=== PATIENT | female | born 2000 | race Caucasian/White ===

== ENCOUNTER 2018-12-26 12:01 | Observation (INO) ==
[2018-12-26 12:04] VITALS: BMI 32.1
[2018-12-26] MEDS ORDERED: NS 500 ML IV 500 ML IV ONE (12:24)
[2018-12-26] MEDS ORDERED: ZOFRAN INJ 4 MG VIAL IVP ONE (12:24)
[2018-12-26] MEDS ORDERED: NS 1000 ML 1,000 ML ONE (12:33)
[2018-12-26] MEDS ORDERED: ZOFRAN INJ 4 MG VIAL ONE (12:33)
[2018-12-26 12:43] LABS: BASOPHILS % (AUTO) 0.5 % (0.2-1.0); EOSINOPHILS # (AUTO) 0.1 x10^3/uL (0.0-0.2); EOSINOPHILS % (AUTO) 0.6 % (0.9-2.9); HEMATOCRIT 38.1 % (36.0-47.0); HEMOGLOBIN 13.4 g/dL (12.0-16.0); LYMPHOCYTES # (AUTO) 2.6 X10^3/uL (1.3-2.9); MEAN CORPUSCULAR HEMOGLOBIN 32.5 pg (27.0-34.0); MEAN CORPUSCULAR HGB CONC 35.1 g/dL (33.0-35.0); MEAN CORPUSCULAR VOLUME 92.7 fL (80.0-100.0); MEAN PLATELET VOLUME 7.1 fL (7.4-11.0); MONOCYTES # (AUTO) 0.6 x10^3/uL (0.3-0.8); MONOCYTES % (AUTO) 6.5 % (0.0-13.0); NEUTROPHILS # (AUTO) 6.2 x10^3/uL (2.2-4.8); NEUTROPHILS % (AUTO) 65.4 % (42.0-75.0); PLATELET COUNT 325 X10^3/uL (150.0-450.0); RED BLOOD COUNT 4.11 X10^6/uL (3.5-5.4); RED CELL DISTRIBUTION WIDTH 12.7 % (11.6-16.5); WHITE BLOOD COUNT 9.5 X10^3/uL (3.6-10.0)
[2018-12-26 12:54] LABS: ALANINE AMINOTRANSFERASE 15 Units/L (12-78); ALBUMIN 4.2 g/dL (3.4-5.0); ALKALINE PHOSPHATASE 80 Units/L (46-116); ASPARTATE AMINO TRANSFERASE 11 Units/L (15-37); BLOOD UREA NITROGEN 8 mg/dL (7-18); CALCIUM 8.7 mg/dL (8.5-10.1); CARBON DIOXIDE 24.1 mmol/L (21-32); CHLORIDE 107 mmol/L (98-107); CREATININE 0.61 mg/dL (0.55-1.02); SODIUM 140 mmol/L (136-145); TOTAL PROTEIN 7.1 g/dL (6.4-8.2); eGFR NON BLACK RACES > 60 (>60)
--- NOTE | 2018-12-26 12:59 | DR.NAUSEAF ---
HPI Time Seen Time Seen by Provider: 12/26/18 12:24 Primary Care Physician Primary Care Physician: Иван WHITLOCK, OSWALD Complaints Chief Complaint Doctors Comments: A 18 y/o female presenting with c/o nausea, vomiting and diarrhea for the preceding 3 days. There is some mild upper abdominal soreness. She states that she was feverish on 1st day of symptoms but not since then. She denies experiencing chills. Chief Complaint:: PT. C/O BODY ACHES, N/V/D X 3 DAYS WELL FEVER AND CHILLS. Reviewed Nurses Notes Reviewed: Yes Source History Provided: Patient Mode of Arrival Mode of Arrival: Ambulatory Timing Onset of Chief Complaint: 12/23/18 Context Onset: Spontaneous Recent: None : No Quality Quality: denies Bilious, Bloody, Coffee Grounds and Food Particles Associated Signs and Symptoms Abdominal Pain Quality: denies Aching, Burning, Cramping, Sharp, Stabbing and Other PMH PMH Past Medical History: No Past Medical History: Depression Past Surgical History: Yes Surgical History: Tonsillectomy Past Surgical History Comment: TUBES IN EARS Family History History of Family Medical Conditions: Yes Family Medical History: Hypertension Social History Does patient currently use any type of tobacco product: Yes Have you used tobacco products in the last 12 months: Yes Type of Tobacco Use: Cigarettes Does any household member use tobacco: Yes Alcohol Use: None Do you use any recreational Drugs:: No Lives With: Dad and Mom Lives Where: Home infectious screening In the last 2 months have you had wt loss of >10#?: NO Have you had fever, night sweats or hemotysis?: No Have you traveled outside the country in the last 6 months?: No Isolation: Standard ROS Review of Systems Constitutional: No Symptoms Reported Eyes: No Symptoms Reported ENTM: No Symptoms Reported Respiratoy: No Symptoms Reported Cardiovascular: No Symptoms Reported Gastrointestinal/Abdominal: Diarrhea, Nausea and Vomiting Genitourinary: No Symptoms Reported Neurological: No Symptoms Reported Musculoskeletal: No Symptoms Reported Integumentary: No Symptoms Reported Hematologic/Lymphatic: No Symptoms Reported Endocrine: No Symptoms Reported Psychiatric: No Symptoms Reported PE Vital Signs Vitals: Pulse Rate 69 Respiratory Rate 18 Blood Pressure [Left Arm] 127/51 Blood Pressure 118/61 O2 Sat by Pulse Oximetry 100 General Limitations: No Limitations General Appearance: Alert and In No Apparent Distress Head Head Exam: Normal Inspection, Atraumatic and Normocephalic Eyes Eye exam: Normal Appearance and EOMI ENT ENT Exam: Normal Exam, Normal Oropharynx and Mucous Membranes Moist Neck Neck Exam: Normal Inspection, Full ROM and Trachea Midline Chest Chest Inspection: Normal Inspection and Symmetric Chest Wall Rise Respiratory Respiratory Exam: Normal Lung Sounds Bilat Cardiovascular Cardiovascular Exam: Regular Rate, Normal Rhythm, +S1 and +S2 Abdominal Exam Abdominal Exam: Normal Inspection, Normal Bowel Sounds and Soft Rectal Rectal Exam: Deferred External Exam: Female: Deferred Extremities Extremities Exam: Normal Inspection and Full ROM Back Back Exam: Normal Inspection and Full ROM Neurologic Neurological Exam: Alert and Oriented X3 Psychiatric Psychiatric Exam: Normal Affect and Normal Mood COURSE Reevaluation 1st: Improved Education/Counseling Education/Counseling: Patient, Education and Counseling Educated On: Treatment, Diagnosis, Prognosis and Needs for Follow Up ROR Labs Reviewed Laboratory Results Reviewed?: Yes Result Diagrams: 12/26/18 12:34 12/26/18 12:34 Laboratory: WBC 9.5 X10^3/uL (3.6-10.0) 12/26/18 12:34 RBC 4.11 X10^6/uL (3.5-5.4) 12/26/18 12:34 Hgb 13.4 g/dL (12.0-16.0) 12/26/18 12:34 Hct 38.1 % (36.0-47.0) 12/26/18 12:34 MCV 92.7 fL (80.0-100.0) 12/26/18 12:34 MCH 32.5 pg (27.0-34.0) 12/26/18 12:34 MCHC 35.1 g/dL (33.0-35.0) H 12/26/18 12:34 RDW 12.7 % (11.6-16.5) 12/26/18 12:34 Plt Count 325 X10^3/uL (150.0-450.0) 12/26/18 12:34 MPV 7.1 fL (7.4-11.0) L 12/26/18 12:34 Neut % (Auto) 65.4 % (42.0-75.0) 12/26/18 12:34 Lymph % (Auto) 27.0 % (21.0-51.0) 12/26/18 12:34 [place] % (Auto) 6.5 % (0.0-13.0) 12/26/18 12:34 Eos % (Auto) 0.6 % (0.9-2.9) L 12/26/18 12:34 Baso % (Auto) 0.5 % (0.2-1.0) 12/26/18 12:34 Neut # (Auto) 6.2 x10^3/uL (2.2-4.8) H 12/26/18 12:34 Lymph # (Auto) 2.6 X10^3/uL (1.3-2.9) 12/26/18 12:34 [place] # (Auto) 0.6 x10^3/uL (0.3-0.8) 12/26/18 12:34 Eos # (Auto) 0.1 x10^3/uL (0.0-0.2) 12/26/18 12:34 Baso # (Auto) 0.0 X10^3/uL (0.0-0.1) 12/26/18 12:34 Absolute Nucleated RBC 0.0 /100WBC 12/26/18 12:34 Sodium 140 mmol/L (136-145) 12/26/18 12:34 Corrected Sodium TNP 12/26/18 12:34 Potassium 3.9 mmol/L (3.5-5.1) 12/26/18 12:34 Chloride 107 mmol/L (98-107) 12/26/18 12:34 Carbon Dioxide 24.1 mmol/L (21-32) 12/26/18 12:34 BUN 8 mg/dL (7-18) 12/26/18 12:34 Creatinine 0.61 mg/dL (0.55-1.02) 12/26/18 12:34 Est GFR (MDRD) Af Amer > 60 (>60) 12/26/18 12:34 Est GFR (MDRD) Non-Af > 60 (>60) 12/26/18 12:34 Glucose 85 mg/dL (65-99) 12/26/18 12:34 Calcium 8.7 mg/dL (8.5-10.1) 12/26/18 12:34 Corrected Calcium TNP 12/26/18 12:34 Total Bilirubin 0.40 mg/dL (0.2-1.0) 12/26/18 12:34 AST 11 Units/L (15-37) L 12/26/18 12:34 ALT 15 Units/L (12-78) 12/26/18 12:34 Alkaline Phosphatase 80 Units/L (46-116) 12/26/18 12:34 Total Protein 7.1 g/dL (6.4-8.2) 12/26/18 12:34 Albumin 4.2 g/dL (3.4-5.0) 12/26/18 12:34 Globulin 2.9 g/dL (2.5-4.5) 12/26/18 12:34 Albumin/Globulin Ratio 1.4 Ratio (1.1-2.1) 12/26/18 12:34 Other Results Comments: Radiologist report on AAS: no acute cardiopulmonary disease. mild small bowel ileus w/o bowel obstruction or perforation. Opioid Opioid Risk Tool Age (Miles box if 16-45): Yes History of Preadolescent Sexual Abuse: No Total: 1 Total Score Risk Category: Low Risk Copyright: [employer] predicting aberrant behaviors Diagnosis Discharge Problem: Gastroenteritis
--- NOTE | 2018-12-26 13:14 | RAD ---
HISTORY: Body aches. Nausea/vomiting/diarrhea for 3 days as well as fever and chills. Study: Acute abdominal series Comparison: CT scan of the abdomen and pelvis done 04/05/2018. Findings: The trachea is midline. The cardiac silhouette is unremarkable. The lungs are clear without focal infiltrate or effusion. There are bilateral cervical ribs.. Flat plate and upright evaluation of the abdomen demonstrates a very mild small bowel ileus pattern. Air and stool throughout the colon without evidence of obstruction.. No pathological soft tissue mass or calcification can be observed. The bony structures are grossly intact. IMPRESSION: 1. No acute cardiopulmonary disease. 2. Mild small bowel ileus without bowel obstruction or perforation. Reported By:
[2018-12-26] MEDS ORDERED: ZOFRAN INJ 4 MG VIAL IVP PRN (13:56)
[2018-12-26] MEDS ORDERED: AFLURIA II4 or FLUARIX II4 IM ONE (15:34)
[2018-12-26] MEDS: D5 NS 1000 ML 1,000 ML IV SCH ×2 (15:37→22:59)
[2018-12-26] MEDS ORDERED: MORPHINE SULFATE INJ 2 MG INJ IVP PRN ×2 (17:11→18:19)
[2018-12-26] MEDS ORDERED: ULTRAM PO PRN (17:11)
[2018-12-26] MEDS ORDERED: NORCO 5/325 MG TAB PO PRN (17:11)
[2018-12-26] MEDS ORDERED: TYLENOL 325 MG TAB PO PRN (17:11)
[2018-12-26] MEDS ORDERED: NORCO 5/325 MG TAB ONE (17:23)
--- NOTE | 2018-12-26 18:22 | DR.H&P ---
H&P - History & Physical for Day of: H&P Date: 12/26/18 - Chief Complaint Chief Complaint: A 18 y/o female presenting with c/o nausea, vomiting and diarrhea for the preceding 3 days. There is some mild upper abdominal soreness. She states that she was feverish on 1st day of symptoms but not since then. She denies experiencing chills. - History of Present Illness History of Present Illness: PT IS 18WF ER ADMISSION AFTER PRESENTING WITH CO U PPER ABDOMINAL PAIN, LOW GRADE FEVER X 2 -3 DAYS, PAIN MORE INTENSE. PT HAD ABD XRAY REVEALING INTESTINAL ILEUS AND CONSTIPATION. PT ADMITTED FOR IV HYDRATION, PAIN CONTROL, BOWEL REGIMEN, EVALUATION OF ACUTE ILLNESS. - Past Medical History Past Medical History: Depression - Past Surgical History Surgical History: Tonsillectomy - Family History Family Medical History: Diabetes Mellitus, Cancer, Hypertension - Social History Does patient currently use any type of tobacco product: Yes Have you used tobacco products in the last 12 months: Yes Type of Tobacco Use: Cigarettes How many years tobacco product used: 2 Does any household member use tobacco: No Alcohol Use: None Drug Use: None - Medications Home Medications: No Known Drug Allergies Allergy (Verified 12/26/18 12:05) CONTINUE taking the following medications NK 12/26/18 [History] - Review of Systems Constitutional: No Symptoms Reported, Fever Eyes: No Symptoms Reported ENT: No Symptoms Reported Respiratory: No Symptoms Reported Cardiovascular: No Symptoms Reported Gastrointestinal: Nausea, Vomiting, Abdominal Pain Genitourinary: No Symptoms Reported Musculoskeletal: No Symptoms Reported Skin: No Symptoms Reported Neurological: No Symptoms Reported - Physical Exam Vital Signs: Temperature 98.3 F Pulse Rate [Right Brachial] 56 Pulse Rate 69 Respiratory Rate 18 Blood Pressure [Left Arm] 99/58 Blood Pressure 118/61 O2 Sat by Pulse Oximetry 97 Oriented: Normal Eyes: Normal Ear: Normal Nose: Normal Throat: Normal Respiratory: Clear Throughout Cardiovascular: Normal : Normal Auscultation: Bowel Sounds: Decreased Tenderness: Diffuse, RUQ, LUQ, Epigastric Skin: Normal Musculoskeletal: Normal Psychiatric: Anxiety Affect: Anxious Speech Pattern: Clear, Appropriate - Assessment/Plan (1) Gastroenteritis Status: Acute Plan: ADMIT, IV HYDRATION. ADMISSION LABS AND AM LABS. UA, HCG. REPEAT AM KUB, PAIN AND NAUSEA CONTROL. BOWEL REGIMEN (2) Ileus Status: Acute (3) Abdominal pain Status: Acute - Allergies Allergies/Adverse Reactions: Allergies Allergy/AdvReac Type Severity Reaction Status Date / Time No Known Drug Allergies Allergy Verified 12/26/18 12:05
[2018-12-26 18:32] LABS: SERUM PREGNANCY TEST, QUAL NEGATIVE <10 mIU/mL
[2018-12-26 19:32] LABS: BILIRUBIN,URINE NEGATIVE (NEGATIVE); BLOOD/HEMOGLOBIN,URINE 1+ (NEGATIVE); GLUCOSE, URINE NEGATIVE (NEGATIVE); KETONES,URINE NEGATIVE (NEGATIVE); LEUKOCYTE ESTERASE ,URINE NEGATIVE (NEGATIVE); NITRITES,URINE NEGATIVE (NEGATIVE); PH,URINE 6.5 (5.0 - 8.0); PROTEIN,URINE NEGATIVE (NEGATIVE); UROBILINOGEN,URINE NORMAL (NORMAL)
[2018-12-26 19:35] LABS: APPEARANCE,URINE SLIGHTLY HAZY (CLEAR); COLOR,URINE YELLOW (YELLOW)
[2018-12-26] MEDS: PROTONIX INJ 40 MG VIAL IVP SCH (19:58)
[2018-12-26 20:03] LABS: RBC,URINE 0-2 /HPF (0-3)
[2018-12-26 20:04] LABS: AMORPHOUS SEDIMENT,UR 1+ /HPF (NEGATIVE); BACTERIA,URINE TRACE /HPF (NEGATIVE); MUCUS,URINE MODERATE /HPF (NEGATIVE); SQUAMOUS EPITHELIAL CELL,UR MANY /HPF (NEGATIVE)
[2018-12-26] MEDS ORDERED: COLACE CAP 100 MG PO SCH (21:00)
[2018-12-27] MEDS: D5 NS 1000 ML 1,000 ML IV SCH ×3 (01:29→09:41)
[2018-12-27 06:17] LABS: BASOPHILS % (AUTO) 0.5 % (0.2-1.0); EOSINOPHILS # (AUTO) 0.1 x10^3/uL (0.0-0.2); HEMATOCRIT 32.4 % (36.0-47.0); HEMOGLOBIN 11.2 g/dL (12.0-16.0); LYMPHOCYTES # (AUTO) 3.4 X10^3/uL (1.3-2.9); LYMPHOCYTES % (AUTO) 43.4 % (21.0-51.0); MEAN CORPUSCULAR HEMOGLOBIN 32.6 pg (27.0-34.0); MEAN CORPUSCULAR HGB CONC 34.5 g/dL (33.0-35.0); MEAN CORPUSCULAR VOLUME 94.5 fL (80.0-100.0); MEAN PLATELET VOLUME 7.5 fL (7.4-11.0); MONOCYTES # (AUTO) 0.5 x10^3/uL (0.3-0.8); NEUTROPHILS # (AUTO) 3.7 x10^3/uL (2.2-4.8); NEUTROPHILS % (AUTO) 48.1 % (42.0-75.0); PLATELET COUNT 245 X10^3/uL (150.0-450.0); RED BLOOD COUNT 3.43 X10^6/uL (3.5-5.4); RED CELL DISTRIBUTION WIDTH 12.9 % (11.6-16.5); WHITE BLOOD COUNT 7.8 X10^3/uL (3.6-10.0)
[2018-12-27 06:25] LABS: ALANINE AMINOTRANSFERASE 12 Units/L (12-78); ALBUMIN 3.1 g/dL (3.4-5.0); ALKALINE PHOSPHATASE 58 Units/L (46-116); ASPARTATE AMINO TRANSFERASE 12 Units/L (15-37); BLOOD UREA NITROGEN 5 mg/dL (7-18); CALCIUM 7.7 mg/dL (8.5-10.1); CHLORIDE 113 mmol/L (98-107); COR CA(FOR HYPOALB) 8.4 mg/dL (8.5-10.1); SODIUM 144 mmol/L (136-145); TOTAL PROTEIN 5.6 g/dL (6.4-8.2); eGFR NON BLACK RACES > 60 (>60)
--- NOTE | 2018-12-27 06:25 | RAD ---
Examination: Abdomen with PA chest, three views History: Nausea and vomiting Comparison 12/26/2018 Findings: Supine and upright views of chest and abdomen demonstrate no chest abnormality. The intestinal gas pattern is unremarkable. There is minimal nonobstructive gaseous filling of the colon. No free air, mass, ascites or pathologic calcification identified. Impression: No significant abnormality demonstrated. Reported By:
[2018-12-27] MEDS: PROTONIX INJ 40 MG VIAL IVP SCH (09:41)
[2018-12-27 13:54] VITALS: BP 100/53
== END 2018-12-27 14:00 | disposition home or self-care (01) ==
LOC: MED/SURG 12:01 → ER 12:01 → MED/SURG 15:03
PROVIDERS: ADMIT Internal Medicine; ATTEND Internal Medicine
DX: K56.0 Paralytic ileus; Z23 Encounter for immunization; R19.7 Diarrhea, unspecified; R10.84 Generalized abdominal pain; K21.9 Gastro-esophageal reflux disease without esophagitis; R11.2 Nausea with vomiting, unspecified; K52.89 Other specified noninfective gastroenteritis and colitis
CPT/HCPCS: 36415; 74022; 80053; 81001; 84703; 85025; 90674; 90686; 96365; 96367; 96374; 99284; A4222; C9113; G0378; J2270; J2405; J3490; J7030; J7042